=== PATIENT | female | born 1985 | race Hispanic/Latino ===

== ENCOUNTER 2016-08-14 19:11 | Emergency (ER) | payer OTHER, MEDICAID ==
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
[2016-08-15] MEDS ORDERED: MOTRIN PO ONE (01:49)
[2016-08-15] MEDS ORDERED: FLEXERIL PO ONE (01:49)
[2016-08-15 02:22] VITALS: BP 138/88
== END 2016-08-15 02:27 | disposition home or self-care (01) ==
LOC: ED 19:11
DX: M54.89 Other dorsalgia (principal); M79.1 Myalgia; L40.9 Psoriasis, unspecified; Z88.0 Allergy status to penicillin; V49.59XA Passenger injured in collision with other motor vehicles in traffic accident, initial encounter; Y92.488 Other paved roadways as the place of occurrence of the external cause; Y93.89 Activity, other specified; Y99.8 Other external cause status
CPT/HCPCS: 99282